=== PATIENT | male | born 1985 ===

== ENCOUNTER 2019-01-12 17:50 | Emergency (ER) | payer SELFPAY ==
[~2019-01-12] VITALS: Ht 165.1 cm; Wt 90.7 kg
[~2019-01-12 17:50] MED LIST: CIPR500T78 PO; OXYC-12 PO
[2019-01-12] MEDS ORDERED: LIDOCAINE 1% INJ 20 ML 20 ML VIAL INJ ONE (18:00)
[2019-01-12] MEDS ORDERED: TETANUS,DIPTH,PERTUSS P/F (BOOSTRIX) 0.5 ML VIAL IM ONE (18:00)
--- NOTE | 2019-01-12 19:02 | ED Upper Extremity ---
General Chief Complaint: Laceration Stated Complaint: L HAND LAC Nursing Triage Note: PT AMB TO TRIAGE WITH COMPLAINT OF LEFT HAND LACERATION. STATES HE CUT IT ON METAL APPROX 20 MIN AGO. DOES NOT KNOW WHEN LAST TETANUS SHOT WAS. Nursing Sepsis Screen: No Definite Risk Source: patient Exam Limitations: no limitations History of Present Illness Date Seen by Provider: Jan 12, 2019 Time Seen by Provider: 18:00 Initial Comments 33-year-old male who presents to emergency room with complaints of a laceration to the left hand. He reports that he cut it on a piece of sharp metal on a trailer. He has a 5 cm laceration to the dorsal surface of his left hand. He has full movement of all of his fingers, no suspicion for tendon or ligament involvement. Reports that he is not up-to-date on his tetanus vaccine. Onset: just prior to arrival Pain/Injury Location: right hand Method of Injury: incised Modifying Factors: Worse With Movement Allergies and Home Medications Allergies Coded Allergies: No Known Drug Allergies (Unverified , 11/12/14) Home Medications Oxycodone Hcl/Acetaminophen 1 Each Tablet, 2 EACH PO Q4H Prescribed by: MENDEL DUENAS on 12/20/14 0919 Patient Home Medication List Home Medication List Reviewed: Yes Review of Systems Constitutional: see HPI; No chills, No fever Skin: see HPI, other (lacerations to hand) All Other Systems Reviewed Negative Unless Noted: Yes Past [id number]-[id number]-[id number] Hx Past Med/Social Hx: Reviewed Nursing Past Med/Soc Hx Patient Social History Alcohol Use: Denies Use Recreational Drug Use: No Smoking Status: Never a Smoker Recent Foreign Travel: No Contact w/Someone Who Travel: No Recent Infectious Disease Expo: No Immunizations Up To Date Tetanus Booster (TDap): Unknown Past Medical History Surgeries: No Respiratory: No Cardiac: No Neurological: No Gastrointestinal: No Musculoskeletal: No Endocrine: No Cancer: No Psychosocial: No Family Medical History Reviewed Nursing Family Hx Patient reports no known family medical history. No Pertinent Family Hx Physical Exam Vital Signs Vital Signs - First Documented 01/12/19 17:53 Pulse 56 Resp 16 B/P (MAP) 112/58 (76) Pulse Ox 100 O2 Delivery Room Air Capillary Refill : Less Than 3 Seconds Height, Weight, BMI Height: 5'5.00" Weight: 200lbs. 0.0oz. [id number]; BMI Method:Stated General Appearance: WD/WN, no apparent distress Cardiovascular: normal peripheral pulses, regular rate, rhythm, no edema, no gallop, no JVD, no murmur Respiratory: chest non-tender, lungs clear, normal breath sounds, no respiratory distress, no accessory muscle use Hand: Right, laceration (5 cm laceration to the dorsal aspect of the hand) Neurologic/Tendon: normal sensation, normal motor functions, normal tendon functions, responds to pain, no evidence tendon injury Neurologic/Psychiatric: alert, normal mood/affect, oriented x 3 Skin: normal color, warm/dry Procedures/Interventions Wound Location: Upper Extremities Other Wound Location Left hand Wound Length (cm): 5 Wound's Depth, Shape: superficial Irrigated w/ Saline (ccs): 200 Betadine Prep?: Yes Anesthesia: 1% Lidocaine Volume Anesthetic (ccs): 4 Suture Size: 4-0 Number of Sutures: 6 Progress The wound was cleaned and irrigated with normal saline, Betasept, iodine. The wound was anesthetized with approximately 4 mL the lidocaine without epinephrine. The wound was closed with 6 simple interrupted sutures of 5-0 Prolene. Progress/Results/Core Measures Results/Orders My Orders Orders - LAURA BLANCO Vaccine Administration Single (01/12/19 ) Medications Given in ED Vital Signs/I&O Blood Pressure Mean: 76 Departure Impression Primary Impression: Laceration Disposition: 01 HOME, SELF-CARE Condition: Stable/Unchanged Departure-Patient Inst. Decision time for Depature: 19:01 Referrals: NO,LOCAL PHYSICIAN (PCP/Family) Primary Care Physician Patient Instructions: LOCAL PHYSICIAN LIST, Laceration Repair With Stitches (DC) Add. Discharge Instructions: Watch for signs of infection such as increased redness, swelling, drainage, pain. Ibuprofen and Tylenol as needed for pain. Change the dressing daily or if it becomes soiled or saturated. Return back to the emergency room for worsening symptoms or concerns as needed. Return back to the emergency room in 7 days to have the sutures removed. Follow-up with a primary care provider as needed. All discharge instructions reviewed with patient and/or family. Voiced understanding. LAURA BLANCO Jan 12, 2019 19:02
[2019-01-12 19:25] VITALS: BP 112/58
== END 2019-01-12 19:25 | disposition home or self-care (01) ==
LOC: EDUNIT# 17:50 → ER 17:52
DX: S61.412A Laceration without foreign body of left hand, initial encounter (principal); Z23 Encounter for immunization; W26.8XXA Contact with other sharp object(s), not elsewhere classified, initial encounter
CPT/HCPCS: 12002; 90471; 90715